=== PATIENT | female | born 2000 ===

== ENCOUNTER 2020-05-18 13:32 | Outpatient (CLI) | payer OTHER ==
[2020-05-18] MEDS ORDERED: BETAMET ACET/BETAMET NA PH 6 MG/ML INJ 5 ML MDV IM SCH (14:06)
[2020-05-18] MEDS ORDERED: LACTATED RINGERS 1,000 ML IV SCH (14:30)
[2020-05-18 15:29] LABS: Bilirubin,Urine NEG (Negative); Blood,Urine NEG (Negative); Color,Urine Yellow (Yellow); Protein,Urine <15 mg/dL mg/dL (Negative); Urobilinogen,Urine < 2.0 mg/dL (<2.0)
[2020-05-18 15:59] VITALS: BP 121/68
[2020-05-18] MEDS: TERBUTALINE 1 MG/1 ML INJ SUB-Q SCH ×2 (16:33→17:47)
[2020-05-18] MEDS ORDERED: MORPHINE 4 MG/1 ML INJ IV ONE (17:22)
== END 2020-05-18 19:14 | disposition home or self-care (01) ==
LOC: TRG 13:32 → APU 13:34 → TRG 19:14
PROVIDERS: ATTEND Obstetrics & Gynecology
DX: O47.03 False labor before 37 completed weeks of gestation, third trimester (principal); Z3A.32 32 weeks gestation of pregnancy
CPT/HCPCS: 59025; 81001; 96360; 96361; 96372; J0702; J3105; J7120

== ENCOUNTER 2020-05-19 15:13 | Outpatient (CLI) | payer OTHER ==
[2020-05-19] MEDS ORDERED: BETAMET ACET/BETAMET NA PH 6 MG/ML INJ 5 ML MDV IM ONE (16:00)
== END 2020-05-19 16:07 | disposition home or self-care (01) ==
LOC: TRG 15:13 → APU 15:14 → TRG 16:07
PROVIDERS: ATTEND Obstetrics & Gynecology
DX: O47.03 False labor before 37 completed weeks of gestation, third trimester (principal); Z3A.32 32 weeks gestation of pregnancy
CPT/HCPCS: 96372; J0702

== ENCOUNTER 2020-06-20 09:05 | Inpatient (IN) | payer OTHER ==
[2020-06-20] MEDS ORDERED: MINERAL OIL 30 ML ORAL LIQD PO PRN (11:30)
[2020-06-20] MEDS ORDERED: BUTORPHANOL 2 MG/1 ML INJ IV PRN (11:30)
[2020-06-20] MEDS ORDERED: NalbUPHINE 10 MG/1 ML INJ IV PRN (11:30)
[2020-06-20] MEDS ORDERED: TERBUTALINE 1 MG/1 ML INJ SUB-Q PRN (11:30)
[2020-06-20] MEDS ORDERED: ePHEDrine SULFATE 50 MG/1 ML INJ IV PRN (11:30)
[2020-06-20] MEDS ORDERED: LACTATED RINGERS 1,000 ML IV SCH (11:30)
[2020-06-20] MEDS ORDERED: LIDOCAINE (2%) 20 MG/1 ML VIAL 20 ML MDV INFILTRATI SCH (11:30)
[2020-06-20 11:54] LABS: Hemoglobin 15.5 gm/dl (10.1-14.3); Mean Corpuscular HGB Conc 34 % (30-34); Mean Corpuscular Volume 92 fl (79-97); Platelet Count 200 K/mm3 (140-440); Red Cell Distribution Width 14.4 % (13.2-15.2)
[2020-06-20] MEDS ORDERED: OXYTOCIN DRIP 30 UNITS/500 ML BAG IV SCH (12:00)
[2020-06-20] MEDS ORDERED: fentaNYL 100 MCG/2 ML INJ IV PRN (12:00)
--- NOTE | 2020-06-20 14:09 | History and Physical Report ---
History of Present Illness Date of examination: 06/20/20 Date of admission: 06/20/20 11:18 Chief complaint: active labor History of present illness: 20yo, G1 @ 37.2 wks, initiated care with [facility] at 10.5 wks gestation. Her has been complicated by +Covid test on 03/23/2020, negative test on 04/01/2020 and excessive weight gain during . She reports to [facility] this morning with reports of painful ctxs and back pain x 2-3 hrs. Reports +FM. Denies any VB or LOF. Labs: O+, antibody negative; rubella immune; VDRL negative; HBsAg negative; HIV negative; GC/Chlamydia negative; MSAFP/Multiple markers negative; 1hr gtt - 96; GBS negative. Past History Past Medical History: no pertinent history Past Surgical History: no surgical history Family/Genetic History: diabetes (MGM) Social history: , full code. denies: smoking, alcohol abuse, prescription drug abuse, IV drug use - Obstetrical History Expected Date of Delivery: 07/09/20 Actual Gestation: 37 Week(s) 2 Day(s) : 1 Para: 0 Hx # Term Pregnancies: 0 Number of Pregnancies: 0 Spontaneous Abortions: 0 Induced : 0 Number of Living Children: 0 Medications and Allergies Allergies Allergy/AdvReac Type Severity Reaction Status Date / Time No Known Allergies Allergy Verified 05/19/20 15:41 Active Meds: Active Medications Butorphanol Tartrate (Butorphanol 2 Mg/1 Ml Inj) 1 mg IV Q2H PRN PRN Reason: Pain, Moderate(4-6) LABOR PAIN Ephedrine Sulfate (Ephedrine Sulfate 50 Mg/1 Ml Inj) 10 mg IV Q2M PRN PRN Reason: Hypotension Fentanyl (Fentanyl 100 Mcg/2 Ml Inj) 100 mcg IV Q2H PRN PRN Reason: Pain,Severe (7-10) LABOR PAIN Oxytocin/Sodium Chloride (Pitocin/Ns 30 Unit/500ml) 30 units in 500 mls @ 2 mls/hr IV TITR CATRACHO; Protocol Lactated Ringer's (Lactated Ringers) 1,000 mls @ 125 mls/hr IV DIRECT CATRACHO Lidocaine (Lidocaine (2%) 20 Mg/1 Ml Vial 20 Ml Mdv) 20 ml INFILTRATI ONCE CATRACHO Stop: 06/21/20 11:29 Mineral Oil (Mineral Oil 30 Ml Oral Liqd) 30 ml PO QHS PRN PRN Reason: Constipation Nalbuphine HCl (Nalbuphine 10 Mg/1 Ml Inj) 10 mg IV Q2H PRN PRN Reason: Pain, Moderate (4-6) Terbutaline Sulfate (Terbutaline 1 Mg/1 Ml Inj) 0.25 mg SUB-Q ONCE PRN PRN Reason: Hyperstimulation/Hypertonicity Review of Systems All systems: negative Genitourinary: contractions (painful) - Vital Signs Vital signs: Vital Signs Pulse BP 88 142/75 06/20/20 09:53 06/20/20 09:53 Temp Pulse Resp BP Pulse Ox 98.4 F 72 20 123/71 06/20/20 11:54 06/20/20 13:31 06/20/20 11:54 06/20/20 13:31 - Physical Exam Breasts: Positive: normal Cardiovascular: Regular rate Abdomen: Positive: other (gravid) Genitourinary (Female): Positive: normal external genitalia, normal perenium Uterus: Positive: enlarged (S=D) Extremities: Positive: normal Deep Tendon Reflex Grade: Normal +2 - Obstetrical FHR: category 1 Uterine Contraction Monitor Mode: External Cervical Dilatation: 9.5 (vertex) Cervical Effacement Percentage: 90 station: -1 Uterine Contraction Frequency (min): 5-6 Uterine Contraction Pattern: Irregular Uterine Tone Measurement Phase: Resting Uterine Contraction Intensity: Strong/Firm Results Result Diagrams: 06/20/20 11:28 Abnormal lab results 06/20/20 Range/Units 11:28 WBC 11.9 H (4.5-11.0) K/mm3 Hgb 15.5 H (10.1-14.3) gm/dl Hct 46.0 H (30.3-42.9) % All other labs normal. Assessment and Plan - Patient Problems (1) Active labor at term Current Visit: Yes Status: Acute Plan to address problem: Continue routine labor orders Pain meds as desired Anticipate (2) Maternal obesity affecting , antepartum Current Visit: Yes Status: Acute
[2020-06-20] MEDS ORDERED: diphenhydrAMINE 25 MG CAP PO PRN (16:18)
[2020-06-20] MEDS ORDERED: MAGNESIUM HYDROXIDE (MOM) ORAL LIQD UDC PO PRN (16:18)
[2020-06-20] MEDS ORDERED: LANOLIN/ZINC/DIMETHICONE (LANSINOH) 7 GM TP PRN (16:18)
[2020-06-20] MEDS ORDERED: WITCH HAZEL/ GLYCERIN PAD TP PRN (16:18)
[2020-06-20] MEDS ORDERED: ONDANSETRON 4 MG/2 ML INJ IV PRN (16:18)
[2020-06-20] MEDS ORDERED: oxyCODONE /ACETAMINOPHEN 5-325MG TAB PO PRN (16:18)
[2020-06-20] MEDS ORDERED: PROMETHAZINE 25 MG TAB PO PRN (16:18)
--- NOTE | 2020-06-20 16:27 | Procedure Note ---
OB Delivery Note - Delivery Date of Delivery: 06/20/20 (8007) Surgeon: ROOPA CORBIN (CNM) Estimated blood loss: other (350cc) - Vaginal Delivery presentation: vertex, compound (Lt hand) Delivery position: OA (TON) Intrapartum events: none Delivery induction: none Delivery augmentation: rupture of membranes (AROM @ 1354, clear fluids) Delivery monitor: external FHT, external uterine Route of delivery: Delivery placenta: spontaneous (gustafson, disposed per hospital policy) Delivery cord: 3 umbilical vessels Episiotomy: none Delivery laceration: 1st degree (perineal, repaired), other (right labial laceration, repaired) Delivery repair: vicryl (3.0 - SH) Anesthesia: local Delivery comments: of viable, crying male infant, placed directly to maternal abdomen. Cord double clamped, cut by FOB. Placenta spontaneously delivered, disposed. Uterus firm @ U-2, hemostasis maintained. Perineum with 1st degree laceration and right labial laceration noted, both repaired. Mother and baby safe, stable and left in care of RN. - A at 1 minute: 9 at 5 minutes: 9 Gender: Male (Weight: 3269 gms (7lbs 3ozs) 19 inches)
[2020-06-20] MEDS: IBUPROFEN 600 MG TAB PO SCH ×2 (18:28→23:13)
[2020-06-21 04:35] LABS: Hematocrit 37.7 % (30.3-42.9); Hemoglobin 12.6 gm/dl (10.1-14.3)
[2020-06-21] MEDS: IBUPROFEN 600 MG TAB PO SCH ×4 (06:26→23:24)
[2020-06-21] MEDS: PRENATAL VIT27-FE FUMARATE-FOLIC ACID VIT TAB PO SCH (10:12)
--- NOTE | 2020-06-21 12:05 | Progress Note ---
Assessment and Plan A: Day 1 Stable P: Follow routine orders Discharge today Return to office in 6 weeks Subjective - Subjective Date of service: 06/21/20 Principal diagnosis: s/p Patient reports: appetite normal, voiding normally, pain well controlled, ambulating normally Sullivan: doing well, bottle feeding (and ) Objective - Vital Signs Latest vital signs: Vital Signs Temp Pulse Resp BP BP Pulse Ox 06/21/20 08:41 97.6 F 100 H 18 109/65 97 06/21/20 01:38 97.6 F 86 18 96/56 97 06/20/20 20:15 98.1 F 110 H 18 133/75 95 06/20/20 18:09 98.1 F 80 18 123/74 99 06/20/20 16:39 109 H 137/77 06/20/20 16:31 122 H 118/75 06/20/20 16:21 100 H 121/84 06/20/20 16:02 85 142/76 06/20/20 15:32 94 H 119/60 06/20/20 15:01 102 H 147/98 06/20/20 14:31 74 126/60 06/20/20 14:03 22 06/20/20 14:02 104 H 139/61 06/20/20 13:31 72 123/71 06/20/20 13:01 68 120/77 06/20/20 12:32 68 124/68 Intake and Output 06/20/20 06/21/20 06/21/20 22:59 06:59 14:59 Intake Total 120 360 380 Output Total 450 250 Balance -330 110 380 Intake: Oral 120 360 380 Output: Urine 450 250 Void 450 250 Other: Total, Intake Amount 120 120 380 Total, Output Amount 150 250 # Voids Void 1 1 1 Estimated Blood Loss 350 - Exam Breasts: Present: normal Cardiovascular: Present: Regular rate, Normal S1, Normal S2 Lungs: Present: Clear to auscultation, Normal air movement Abdomen: Present: normal appearance, soft Uterus: Present: normal, firm, fundal height below umbilicus Extremities: Present: normal
--- NOTE | 2020-06-21 12:06 | Discharge Summary ---
Providers - Providers Date of Admission: 06/20/20 11:18 Date of discharge: 06/21/20 Attending physician: MARIA ELENA AG JR, MD 06/20/20 16:19 Consult to Traveling Auditor [CONS] Routine Reason For Exam: assistance with , SNS Primary care physician: CORNEL FREGOSO MD Hospitalization Reason for admission: active labor Delivery: Episiotomy: none Laceration: 1st degree (perineal), other (labial) Other procedures: none complications: none Discharge diagnosis: IUP at term delivered [place] baby: male Condition at discharge: Good Disposition: DC-01 TO HOME OR SELFCARE Plan - Provider Discharge Summary Activity: routine, no sex for 6 weeks, no heavy lifting 4 weeks, no strenuous exercise Diet: routine Instructions: routine Additional instructions: [] Smoking cessation referral if applicable(refer to patient education folder for contact #) [] Refer to [facility] Booklet Call your doctor immediately for: * Fever > 100.5 * Heavy vaginal bleeding ( >1 pad per hour) * Severe persistent headache * Shortness of breath * Reddened, hot, painful area to leg or breast * Drainage or odor from incision. * Keep incision clean and dry at all times and follow doctor's instructions regarding bathing/showering - Follow up plan Follow up: CORNEL FREGOSO MD [Primary Care Provider] - 6 Weeks
[2020-06-22] MEDS: IBUPROFEN 600 MG TAB PO SCH ×2 (05:29→10:56)
[2020-06-22 08:57] VITALS: BP 112/77
[2020-06-22] MEDS: PRENATAL VIT27-FE FUMARATE-FOLIC ACID VIT TAB PO SCH (10:56)
== END 2020-06-22 13:55 | disposition home or self-care (01) | DRG 775 ==
LOC: TRG 09:05 → APU 09:06 → TRG 11:17 → OBSVTOIN 11:18 → LD 11:18 → OB 18:08
PROVIDERS: ADMIT Obstetrics & Gynecology; ATTEND Obstetrics & Gynecology
PROC: 10E0XZZ Delivery of Products of Conception, External Approach (ICD-10-PCS; principal; 2020-06-20)
PROC: 0HQ9XZZ Repair Perineum Skin, External Approach (ICD-10-PCS; 2020-06-20)
PROC: 10907ZC Drainage of Amniotic Fluid, Therapeutic from Products of Conception, Via Natural or Artificial Opening (ICD-10-PCS; 2020-06-20)
PROC: 0UQMXZZ Repair Vulva, External Approach (ICD-10-PCS; 2020-06-20)
DX: O99.214 Obesity complicating childbirth (principal); E66.8 Other obesity; Z20.822 Contact with and (suspected) exposure to COVID-19; O70.0 First degree perineal laceration during delivery; Z37.0 Single live birth; Z3A.37 37 weeks gestation of pregnancy; Z83.3 Family history of diabetes mellitus
CPT/HCPCS: 36415; 85014; 85018; 85027; 86850; 86900; 86901; G0378; J2590; J3010; U0003